=== PATIENT | male | born 1985 ===

== ENCOUNTER 2024-08-04 23:21 | Inpatient (IN) | payer MEDICAID, SELFPAY ==
[~2024-08-04 23:21] MED LIST: Iopamidol-370 76% 500 ML MDV (1 ML CHARGE) ONE
[2024-08-04] MEDS ORDERED: CEFAZOLIN 2 GM VIAL ONE (23:34)
[2024-08-04] MEDS ORDERED: Boostrix 0.5 ML (Tdap) VIAL (>/=7 yrs of age) ONE (23:35)
[2024-08-04] MEDS ORDERED: Sodium Chloride 0.9% 100 ML ONE (23:35)
[2024-08-04] MEDS ORDERED: Tranexamic Acid 1,000 MG/10 ML VIAL ONE (23:40)
[2024-08-04] MEDS ORDERED: Calcium Chloride 1 GM/10 ML Abboject SYRINGE ONE (23:42)
[2024-08-05] MEDS ORDERED: Fentanyl 250 MCG/5 ML VIAL ONE (00:06)
[2024-08-05] MEDS ORDERED: Midazolam HCl 2 mg/2 ml Vial ONE ×2 (00:07→01:05)
[2024-08-05 00:12] LABS: Alcohol Less than 10.0 mg/dL (Less than 10)
[2024-08-05 00:15] LABS: ALT (SGPT) 47 U/L (Less than 45); AST (SGOT) 69 U/L (11-34); Albumin 3.4 g/dL (3.1-4.5); Alkaline Phosphatase 89 U/L (40-110); Anion Gap 17 mmol/L (10-20); BUN (Urea Nitrogen) 14 mg/dL (8.9-20.6); Bilirubin, Total 0.6 mg/dL (0.3-1.2); Calc. Creatinine Clearance 0 mL/min (70-130); Calcium 7.6 mg/dL (7.8-10.44); Carbon Dioxide 15 mmol/L (22-29); Chloride 110 mmol/L (98-107); Estimated GFR 86; Globulin 2.3 g/dL (2.4-3.5); Glucose 216 mg/dL (70-105); Lipase 72 U/L (8-78); Potassium 2.9 mmol/L (3.5-5.1); Protein, Total 5.7 g/dL (6.0-8.3); Sodium 139 mmol/L (136-145)
[2024-08-05 00:16] LABS: INR-International Normal Ratio 1.4; PTT 24.8 sec (22.9-36.1); Prothrombin Time 16.9 sec (12.0-14.7)
[2024-08-05 00:38] LABS: Band 28 % (5-11); Hypochromia SLIGHT = 6-15 cells HPF (0-5); Lymphocytes 21 % (21-51); Neutrophil 51 % (42-75); Platelet Adequacy Comment Platelets Normal; Poikilocytosis SLIGHT = 6-15 cells HPF (0-5)
[2024-08-05 00:45] LABS: #Basophils 0.04 10x3/uL (0.0-0.2); %Basophils 0.2 % (0.0-1.0); %Eosinophils 0.3 % (0.0-10.0); %Lymphocytes 24.1 % (21.0-51.0); %Monocytes 3.2 % (0.0-10.0); %Neutrophils 71.2 % (42.0-75.0); Hematocrit 37.4 % (42.0-52.0); Hemoglobin 12.4 g/dL (14.0-18.0); Mean Corpuscular HGB CONC 33.2 g/dL (32.0-36.0); Mean Corpuscular Hemoglobin 30.5 pg (27.0-31.0); Mean Corpuscular Volume 91.9 fL (78.0-98.0); Mean Platelet Volume 10.6 fL (7.4-10.4); Platelet Count 309 10x3/uL (130-400); RBC Distribution Width 12.5 % (11.5-14.5); Red Blood Cell (RBC) Count 4.07 mill/uL (4.70-6.10)
[2024-08-05] MEDS ORDERED: Sodium Bicarb 50 mEq/50 ML VIAL ONE (01:11)
[2024-08-05] MEDS ORDERED: SUCCINYLCHOLINE/SOD CL,ISO/PF 200 MG/10 ML SYRINGE FS ONE (01:39)
[2024-08-05] MEDS ORDERED: Calcium Chloride 1 GM/10 ML Abboject SYRINGE ONE (01:39)
[2024-08-05] MEDS ORDERED: PHENYLEPHRINE-NS 100 MCG/ML 10 ML SYRINGE ONE (01:39)
[2024-08-05] MEDS ORDERED: Rocuronium Bromide 10 MG/ML (10ML VIAL) ONE (01:39)
[2024-08-05] MEDS ORDERED: Electrolyte Replacement Protocol FS SCH (01:45)
[2024-08-05] MEDS ORDERED: Ventilator Sedation Protocol FS SCH (01:45)
[2024-08-05] MEDS ORDERED: Dextrose 50% Abboject 50 ML SYRINGE SLOW IVP PRN (01:50)
[2024-08-05] MEDS ORDERED: Ondansetron PF 4 MG/2 ML Vial IVP PRN (01:50)
[2024-08-05] MEDS ORDERED: Morphine 4 MG/ML VIAL SLOW IVP PRN (01:50)
[2024-08-05] MEDS ORDERED: Acetaminophen 325 MG TAB PO PRN (01:50)
[2024-08-05] MEDS ORDERED: Dextrose 5% in Water 1,000 ML IV PRN (01:50)
[2024-08-05] MEDS ORDERED: Glucagon 1 MG/ML KIT IM PRN (01:50)
[2024-08-05] MEDS ORDERED: Morphine 2 MG/ML VIAL SLOW IVP PRN ×2 (01:50→03:00)
[2024-08-05] MEDS: Lactated Ringer's 1,000 ML IV SCH (02:30)
[2024-08-05 02:36] LABS: Actual Bicarbonate (HCO3a) 19.5 mEq/L (22-28); Base Excess (BEa) -5.9 mEq/L (-2.0 to +3.0); CO2 Tension 38.1 mmHg (35.0-45.0); O2 Tension (PaO2), arterial 185.3 mmHg (80.0-100.0); Potassium - ABG Lab 3.35 mmol/L (3.70-5.30); pH, Arterial 7.327 (7.35-7.45)
[2024-08-05 02:42] LABS: ALV-art Gradient 52.275 mmHg (0-20); Puncture Site Arterial Line
[2024-08-05] MEDS ORDERED: DISCONTINUE PREVIOUS NARCOTIC PAIN MEDICATIONS AND BENZODIAZEPINES FS SCH (03:00)
[2024-08-05] MEDS ORDERED: Fentanyl BOLUS 250 ML IVPB PRN (03:00)
[2024-08-05] MEDS ORDERED: Propofol BOLUS 1,000 MG/100 ML VIAL IV PRN (03:00)
[2024-08-05 03:04] LABS: #Basophils Less than 0.03 10x3/uL (0.0-0.2); #Eosinophils Less than 0.03 10x3/uL (0.0-0.7); %Basophils 0.2 % (0.0-1.0); %Eosinophils 0.2 % (0.0-10.0); %Lymphocytes 13.5 % (21.0-51.0); %Neutrophils 74.7 % (42.0-75.0); Hematocrit 34.3 % (42.0-52.0); Hemoglobin 11.7 g/dL (14.0-18.0); Mean Corpuscular HGB CONC 34.1 g/dL (32.0-36.0); Mean Corpuscular Hemoglobin 29.4 pg (27.0-31.0); Mean Corpuscular Volume 86.2 fL (78.0-98.0); Mean Platelet Volume 9.7 fL (7.4-10.4); Platelet Count 156 10x3/uL (130-400); RBC Distribution Width 13.7 % (11.5-14.5); Red Blood Cell (RBC) Count 3.98 mill/uL (4.70-6.10)
[2024-08-05 03:14] VITALS: BMI 19.8
[2024-08-05 03:21] LABS: Phosphorus 2.5 mg/dL (2.5-4.5)
[2024-08-05 03:25] LABS: ALT (SGPT) 135 U/L (Less than 45); AST (SGOT) 173 U/L (11-34); Alkaline Phosphatase 69 U/L (40-110); Anion Gap 15 mmol/L (10-20); BUN (Urea Nitrogen) 11 mg/dL (8.9-20.6); Bilirubin, Total 1.4 mg/dL (0.3-1.2); Calc. Creatinine Clearance 111 mL/min (70-130); Calcium 8.2 mg/dL (7.8-10.44); Carbon Dioxide 17 mmol/L (22-29); Chloride 114 mmol/L (98-107); Estimated GFR 112; Globulin 2.2 g/dL (2.4-3.5); Glucose 160 mg/dL (70-105); Lactic Acid 4.84 mmol/L (0.50-2.20); Magnesium 1.6 mg/dL (1.6-2.6); Potassium 3.2 mmol/L (3.5-5.1); Protein, Total 5.2 g/dL (6.0-8.3); Sodium 143 mmol/L (136-145)
[2024-08-05] MEDS ORDERED: NOREPINEPHRINE 8 MG/250 ML-D5W 250 ML IVPB SCH (04:00)
[2024-08-05] MEDS: Sodium Bicarb 50 MEQ/50 ML Abboject 8.4% SYRINGE IVP SCH (04:19)
[2024-08-05] MEDS: Fentanyl CADD 100 ML ONE (04:20)
[2024-08-05] MEDS: Sodium Bicarb 50 MEQ/50 ML Abboject 8.4% SYRINGE ONE (04:21)
[2024-08-05] MEDS: Albumin 25% 200 ML ONE (04:21)
[2024-08-05] MEDS: Albumin 25% 25 GM (100 mL) BOT IVPB SCH (04:24)
[2024-08-05] MEDS: Fentanyl CADD 100 ML IV SCH (04:28)
[2024-08-05] MEDS: Potassium Chloride 20 MEQ in Premix 1 BAG IVPB SCH ×2 (04:33→07:37)
[2024-08-05] MEDS: Magnesium Sulfate In Water 4 GM in Premix 1 BAG IVPB SCH (05:44)
[2024-08-05] MEDS: Famotidine/PF 20 mg/2ml Vial SLOW IVP SCH (08:10)
[2024-08-05] MEDS: Acetaminophen 325 MG TAB PO SCH (08:14)
[2024-08-05] MEDS: FLU (Fluarix Triv) TS24-25(6MOS UP)/PF 45 MCG/0.5 ML Syringe IM ONE (08:15)
[2024-08-05] MEDS: Enoxaparin 40 MG (0.4 mL) SYRINGE SC SCH (09:12)
[2024-08-05 11:05] LABS: Hematocrit 33.4 % (42.0-52.0); Hemoglobin 11.6 g/dL (14.0-18.0); Mean Corpuscular HGB CONC 34.7 g/dL (32.0-36.0); Mean Corpuscular Hemoglobin 29.8 pg (27.0-31.0); Mean Corpuscular Volume 85.9 fL (78.0-98.0); Mean Platelet Volume 10.2 fL (7.4-10.4); Platelet Count 117 10x3/uL (130-400); RBC Distribution Width 14.3 % (11.5-14.5); Red Blood Cell (RBC) Count 3.89 mill/uL (4.70-6.10)
[2024-08-05] MEDS: Lorazepam 2 MG/ML VIAL SLOW IVP PRN (11:23)
[2024-08-05] MEDS: Propofol 1,000 MG/100 ML VIAL IV PRN (11:28)
[2024-08-05 12:52] LABS: Hematocrit 34.4 % (42.0-52.0); Hemoglobin 12.3 g/dL (14.0-18.0); Mean Corpuscular HGB CONC 35.8 g/dL (32.0-36.0); Mean Corpuscular Hemoglobin 30.4 pg (27.0-31.0); Mean Corpuscular Volume 84.9 fL (78.0-98.0); Platelet Count 123 10x3/uL (130-400); RBC Distribution Width 14.1 % (11.5-14.5); Red Blood Cell (RBC) Count 4.05 mill/uL (4.70-6.10)
[2024-08-05 13:32] LABS: Band 19 % (5-11); Lymphocytes 6 % (21-51); Metamyelocyte 6 % (0-0); Monocytes 8 % (0-10); Neutrophil 62 % (42-75); Platelet Adequacy Comment Platelets Decreased; Polychromasia SLIGHT = 2-3 cells HPF (0-2); Schistocytes SLIGHT = 2-5 cells HPF (0-1); Smudge Cells 9.8 %; Tear Drops SLIGHT = 2-5 cells HPF (0-1); Toxic Granulation SLIGHT; Vacuoles SLIGHT
[2024-08-06 04:03] LABS: Hematocrit 32.2 % (42.0-52.0); Hemoglobin 11.1 g/dL (14.0-18.0); Mean Corpuscular HGB CONC 34.5 g/dL (32.0-36.0); Mean Corpuscular Hemoglobin 29.8 pg (27.0-31.0); Mean Corpuscular Volume 86.6 fL (78.0-98.0); Mean Platelet Volume 11.2 fL (7.4-10.4); Platelet Count 115 10x3/uL (130-400); RBC Distribution Width 14.4 % (11.5-14.5); Red Blood Cell (RBC) Count 3.72 mill/uL (4.70-6.10)
[2024-08-06 04:14] LABS: Anion Gap 12 mmol/L (10-20); BUN (Urea Nitrogen) 21 mg/dL (8.9-20.6); Calc. Creatinine Clearance 97 mL/min (70-130); Carbon Dioxide 24 mmol/L (22-29); Chloride 108 mmol/L (98-107); Estimated GFR 102; Glucose 130 mg/dL (70-105); Potassium 3.9 mmol/L (3.5-5.1); Sodium 140 mmol/L (136-145)
[2024-08-06 04:31] LABS: Band 62 % (5-11); Hypochromia SLIGHT = 6-15 cells HPF (0-5); Large Platelets 0.9 % (0-5); Lymphocytes 8 % (21-51); Metamyelocyte 3 % (0-0); Monocytes 9 % (0-10); Neutrophil 18 % (42-75); Nucleated RBC (Manual Ct) 1 % (0); Platelet Adequacy Comment Platelets Decreased; Polychromasia SLIGHT = 2-3 cells HPF (0-2)
[2024-08-06] MEDS ORDERED: PROPOFOL 20 ML ONE (12:34)
[2024-08-06] MEDS ORDERED: Midazolam HCl 2 mg/2 ml Vial ONE (12:34)
[2024-08-06] MEDS ORDERED: fentaNYL PF 100 MCG/2 ML SYRINGE ONE ×3 (12:34→15:51)
[2024-08-06] MEDS ORDERED: Rocuronium Bromide 10 MG/ML (10ML VIAL) ONE (12:35)
[2024-08-06] MEDS ORDERED: CEFAZOLIN 1 GM VIAL ONE (14:12)
[2024-08-06] MEDS ORDERED: SUGAMMADEX SODIUM 200 MG/2 ML VIAL ONE (14:21)
[2024-08-06] MEDS ORDERED: HYDROmorphone 2 MG/ML VIAL ONE (14:24)
[2024-08-06] MEDS: Acetaminophen 325 MG TAB ONE (22:34)
[2024-08-06] MEDS: Acetaminophen 325 MG TAB PO SCH ×2 (22:35→23:10)
[2024-08-06] MEDS: Piperacillin/Tazobactam 3.375 GM in Sodium Chloride 0.9% 100 ML IVPB SCH (22:41)
[2024-08-07] MEDS: Piperacillin/Tazobactam 3.375 GM in Sodium Chloride 0.9% 100 ML IVPB SCH (01:02)
[2024-08-07 04:19] LABS: Hematocrit 31.9 % (42.0-52.0); Hemoglobin 10.7 g/dL (14.0-18.0); Mean Corpuscular HGB CONC 33.5 g/dL (32.0-36.0); Mean Corpuscular Hemoglobin 29.9 pg (27.0-31.0); Mean Corpuscular Volume 89.1 fL (78.0-98.0); Mean Platelet Volume 11.2 fL (7.4-10.4); Platelet Count 126 10x3/uL (130-400); Red Blood Cell (RBC) Count 3.58 mill/uL (4.70-6.10)
[2024-08-07 04:28] LABS: Anion Gap 13 mmol/L (10-20); BUN (Urea Nitrogen) 18 mg/dL (8.9-20.6); Calc. Creatinine Clearance 94 mL/min (70-130); Calcium 7.8 mg/dL (7.8-10.44); Carbon Dioxide 25 mmol/L (22-29); Chloride 106 mmol/L (98-107); Estimated GFR 96; Glucose 120 mg/dL (70-105); Potassium 3.7 mmol/L (3.5-5.1); Sodium 140 mmol/L (136-145)
[2024-08-07 04:51] LABS: Band 34 % (5-11); Eosinophils 13 % (0-10); Hypochromia SLIGHT = 6-15 cells HPF (0-5); Large Platelets 4.9 % (0-5); Lymphocytes 6 % (21-51); Metamyelocyte 2 % (0-0); Monocytes 17 % (0-10); Neutrophil 25 % (42-75); Platelet Adequacy Comment Platelets Decreased; Reactive Lymphocytes 4 % (0-10)
[2024-08-07 07:35] LABS: Actual Bicarbonate (HCO3a) 25.4 mEq/L (22-28); Base Excess (BEa) 1.4 mEq/L (-2.0 to +3.0); CO2 Tension 37.5 mmHg (35.0-45.0); Calcium, Ionized (arterial) 1.01 mmol/L (1.12-1.30); Carboxyhemoglobin (COHb) 0.5 gm% (0.0-3.0); Hematocrit-ABG 34 % (42.0-52.0); Hemoglobin (Hb) 11.4 g/dL (14.0-18.0); O2 Tension (PaO2), arterial 107.3 mmHg (80.0-100.0); Potassium - ABG Lab 3.67 mmol/L (3.70-5.30); pH, Arterial 7.448 (7.35-7.45)
[2024-08-07 07:37] LABS: ALV-art Gradient 131.025 mmHg (0-20); Puncture Site Arterial Line
[2024-08-07] MEDS ORDERED: CEFAZOLIN 2 GM in Sodium Chloride 0.9% 100 ML IVPB SCH (08:15)
[2024-08-07] MEDS ORDERED: Sterile Water 10 ML ONE (14:51)
[2024-08-07] MEDS ORDERED: CEFAZOLIN 1 GM VIAL ONE (14:51)
[2024-08-07] MEDS ORDERED: Dexamethasone 20 MG/5 ML VIAL ONE (15:01)
[2024-08-07] MEDS ORDERED: fentaNYL PF 100 MCG/2 ML SYRINGE ONE (15:12)
[2024-08-07] MEDS ORDERED: PHENYLEPHRINE-NS 100 MCG/ML 10 ML SYRINGE ONE (16:02)
[2024-08-07] MEDS ORDERED: Vecuronium 10 MG VIAL ONE ×2 (16:14→18:06)
[2024-08-07] MEDS ORDERED: Sodium Chloride 0.9% 250 ML 250 ML ONE (16:31)
[2024-08-07] MEDS ORDERED: Phenylephrine 10 MG/ML VIAL ONE (16:32)
[2024-08-07] MEDS ORDERED: Albumin 5% 500 ML ONE (16:56)
[2024-08-07] MEDS ORDERED: Esmolol 100 MG/10 ML VIAL ONE (17:13)
[2024-08-07] MEDS ORDERED: Vancomycin 1 GM VIAL ONE (17:17)
[2024-08-07] MEDS: CEFAZOLIN 2 GM in Sodium Chloride 0.9% 100 ML IVPB SCH (21:09)
[2024-08-08 04:21] LABS: Hematocrit 25.4 % (42.0-52.0); Hemoglobin 8.4 g/dL (14.0-18.0); Mean Corpuscular HGB CONC 33.1 g/dL (32.0-36.0); Mean Corpuscular Hemoglobin 29.7 pg (27.0-31.0); Mean Corpuscular Volume 89.8 fL (78.0-98.0); Platelet Count 128 10x3/uL (130-400); RBC Distribution Width 13.6 % (11.5-14.5); Red Blood Cell (RBC) Count 2.83 mill/uL (4.70-6.10)
[2024-08-08 04:39] LABS: Anion Gap 12 mmol/L (10-20); BUN (Urea Nitrogen) 16 mg/dL (8.9-20.6); Calc. Creatinine Clearance 116 mL/min (70-130); Calcium 7.6 mg/dL (7.8-10.44); Carbon Dioxide 26 mmol/L (22-29); Chloride 107 mmol/L (98-107); Estimated GFR 113; Glucose 162 mg/dL (70-105); Potassium 3.7 mmol/L (3.5-5.1); Sodium 141 mmol/L (136-145)
[2024-08-08 05:17] LABS: Band 30 % (5-11); Hypochromia SLIGHT = 6-15 cells HPF (0-5); Lymphocytes 4 % (21-51); Monocytes 4 % (0-10); Neutrophil 62 % (42-75); Platelet Adequacy Comment Platelets Decreased; Polychromasia SLIGHT = 2-3 cells HPF (0-2)
[2024-08-08] MEDS ORDERED: DC Sedation Protocol FS SCH (08:03)
[2024-08-08] MEDS: Morphine 4 MG/ML VIAL SLOW IVP PRN (16:48)
[2024-08-08] MEDS ORDERED: Morphine 4 MG/ML VIAL SLOW IVP PRN (20:39)
[2024-08-08] MEDS: Acetaminophen 500 MG TAB PO SCH (21:30)
[2024-08-08] MEDS: Lactated Ringer's 1,000 ML IV SCH (21:30)
[2024-08-08] MEDS: Ketorolac Tromethamine 30 MG (1 mL) VIAL IVP SCH (23:22)
[2024-08-09 04:50] LABS: #Basophils Less than 0.03 10x3/uL (0.0-0.2); #Eosinophils Less than 0.03 10x3/uL (0.0-0.7); %Basophils 0.1 % (0.0-1.0); %Eosinophils 0.1 % (0.0-10.0); %Lymphocytes 6.5 % (21.0-51.0); %Monocytes 8.9 % (0.0-10.0); Hematocrit 23.6 % (42.0-52.0); Hemoglobin 7.7 g/dL (14.0-18.0); Mean Corpuscular HGB CONC 32.6 g/dL (32.0-36.0); Mean Corpuscular Hemoglobin 29.3 pg (27.0-31.0); Mean Corpuscular Volume 89.7 fL (78.0-98.0); Mean Platelet Volume 11.1 fL (7.4-10.4); Platelet Count 171 10x3/uL (130-400); RBC Distribution Width 13.9 % (11.5-14.5); Red Blood Cell (RBC) Count 2.63 mill/uL (4.70-6.10)
[2024-08-09 05:25] LABS: Anion Gap 12 mmol/L (10-20); BUN (Urea Nitrogen) 20 mg/dL (8.9-20.6); Calc. Creatinine Clearance 159 mL/min (70-130); Calcium 7.8 mg/dL (7.8-10.44); Carbon Dioxide 26 mmol/L (22-29); Chloride 109 mmol/L (98-107); Estimated GFR 121; Glucose 136 mg/dL (70-105); Potassium 3.8 mmol/L (3.5-5.1); Sodium 143 mmol/L (136-145)
[2024-08-09] MEDS: Piperacillin/Tazobactam 3.375 GM VIAL ONE (23:55)
[2024-08-10] MEDS: Azithromycin 500 MG in Sodium Chloride 0.9% 250 ML 250 ML IVPB SCH (12:12)
[2024-08-10] MEDS: Saccharomyces boulardii 250 MG CAP PO SCH (12:13)
[2024-08-10] MEDS ORDERED: Lactated Ringer's 1,000 ML IV SCH (14:03)
[2024-08-10 14:14] LABS: Hematocrit 27.3 % (42.0-52.0); Mean Corpuscular Hemoglobin 30.2 pg (27.0-31.0); Mean Corpuscular Volume 91.6 fL (78.0-98.0); Mean Platelet Volume 10.5 fL (7.4-10.4); Platelet Count 272 10x3/uL (130-400); RBC Distribution Width 13.8 % (11.5-14.5); Red Blood Cell (RBC) Count 2.98 mill/uL (4.70-6.10)
[2024-08-10 14:31] LABS: Anion Gap 14 mmol/L (10-20); BUN (Urea Nitrogen) 17 mg/dL (8.9-20.6); Calc. Creatinine Clearance 156 mL/min (70-130); Calcium 7.9 mg/dL (7.8-10.44); Carbon Dioxide 21 mmol/L (22-29); Chloride 111 mmol/L (98-107); Estimated GFR 121; Glucose 137 mg/dL (70-105); Potassium 3.6 mmol/L (3.5-5.1); Sodium 142 mmol/L (136-145)
[2024-08-10 14:40] LABS: Band 6 % (5-11); Hypochromia SLIGHT = 6-15 cells HPF (0-5); Large Platelets 2.9 % (0-5); Lymphocytes 6 % (21-51); Metamyelocyte 1 % (0-0); Monocytes 8 % (0-10); Myelocyte 2 % (0-0); Neutrophil 76 % (42-75); Platelet Adequacy Comment Platelets Normal; Polychromasia MODERATE = 3-4 cells HPF (0-2); RBC Morphology Within Normal Limits; Reactive Lymphocytes 2 % (0-10)
[2024-08-10] MEDS: traMADol HCl 50 MG TAB PO SCH (14:56)
[2024-08-10] MEDS ORDERED: Iopamidol-370 76% 500 ML MDV (1 ML CHARGE) ONE (15:13)
[2024-08-10] MEDS: Vancomycin (BATCH) 2 GM in Premix 1 BAG IVPB SCH (18:18)
[2024-08-10] MEDS: Vancomycin 1 GM in Premix 1 BAG IVPB SCH (23:17)
[2024-08-11 07:04] LABS: Anion Gap 12 mmol/L (10-20); BUN (Urea Nitrogen) 11 mg/dL (8.9-20.6); Calc. Creatinine Clearance 169 mL/min (70-130); Calcium 7.8 mg/dL (7.8-10.44); Carbon Dioxide 20 mmol/L (22-29); Chloride 108 mmol/L (98-107); Estimated GFR 124; Glucose 130 mg/dL (70-105); Potassium 3.3 mmol/L (3.5-5.1); Sodium 137 mmol/L (136-145)
[2024-08-11 07:36] LABS: Hemoglobin 8.3 g/dL (14.0-18.0); Mean Corpuscular HGB CONC 33.2 g/dL (32.0-36.0); Mean Corpuscular Hemoglobin 29.6 pg (27.0-31.0); Mean Corpuscular Volume 89.3 fL (78.0-98.0); Mean Platelet Volume 10.1 fL (7.4-10.4); Platelet Count 327 10x3/uL (130-400); RBC Distribution Width 13.8 % (11.5-14.5)
[2024-08-11 08:07] LABS: Band 3 % (5-11); Eosinophils 1 % (0-10); Lymphocytes 9 % (21-51); Metamyelocyte 1 % (0-0); Monocytes 6 % (0-10); Neutrophil 79 % (42-75); Nucleated RBC (Manual Ct) 3 % (0); Ovalocytes SLIGHT = 2-5 cells HPF (0-1); Platelet Adequacy Comment Platelets Normal; Polychromasia SLIGHT = 2-3 cells HPF (0-2)
[2024-08-11] MEDS: Saccharomyces boulardii 250 MG CAP PO SCH (09:19)
[2024-08-11] MEDS: VANCOMYCIN 1.25 GM/250 ML BAG 1.25 GM in Premix 1 BAG IVPB SCH (17:02)
[2024-08-12] MEDS: Potassium Chloride 20 MEQ TAB PO SCH (09:18)
[2024-08-12 14:07] VITALS: BMI 21.4
[2024-08-13 08:23] LABS: Anion Gap 14 mmol/L (10-20); BUN (Urea Nitrogen) 13 mg/dL (8.9-20.6); Calc. Creatinine Clearance 164 mL/min (70-130); Calcium 7.9 mg/dL (7.8-10.44); Carbon Dioxide 21 mmol/L (22-29); Chloride 104 mmol/L (98-107); Estimated GFR 126; Glucose 95 mg/dL (70-105); Sodium 135 mmol/L (136-145)
[2024-08-13 11:36] LABS: Vancomycin, Random 17.3 ug/mL (See Comment)
[2024-08-13 12:47] LABS: Hematocrit 28.9 % (42.0-52.0); Hemoglobin 9.7 g/dL (14.0-18.0); Mean Corpuscular HGB CONC 33.6 g/dL (32.0-36.0); Mean Corpuscular Hemoglobin 29.8 pg (27.0-31.0); Mean Corpuscular Volume 88.9 fL (78.0-98.0); Mean Platelet Volume 9.6 fL (7.4-10.4); Platelet Count 582 10x3/uL (130-400); RBC Distribution Width 14.1 % (11.5-14.5); Red Blood Cell (RBC) Count 3.25 mill/uL (4.70-6.10)
[2024-08-13 13:22] LABS: Band 3 % (5-11); Eosinophils 1 % (0-10); Lymphocytes 6 % (21-51); Metamyelocyte 2 % (0-0); Monocytes 5 % (0-10); Neutrophil 84 % (42-75); Platelet Adequacy Comment Platelets Increased; Polychromasia SLIGHT = 2-3 cells HPF (0-2); RBC Morphology Within Normal Limits; Smudge Cells 0.9 %
[2024-08-14 05:42] LABS: #Basophils 0.03 10x3/uL (0.0-0.2); %Basophils 0.2 % (0.0-1.0); %Eosinophils 0.3 % (0.0-10.0); %Lymphocytes 8.8 % (21.0-51.0); %Monocytes 7.1 % (0.0-10.0); %Neutrophils 78.7 % (42.0-75.0); Hematocrit 26.5 % (42.0-52.0); Hemoglobin 9.1 g/dL (14.0-18.0); Mean Corpuscular HGB CONC 34.3 g/dL (32.0-36.0); Mean Corpuscular Hemoglobin 29.6 pg (27.0-31.0); Mean Corpuscular Volume 86.3 fL (78.0-98.0); Mean Platelet Volume 9.6 fL (7.4-10.4); Platelet Count 626 10x3/uL (130-400); RBC Distribution Width 14.3 % (11.5-14.5); Red Blood Cell (RBC) Count 3.07 mill/uL (4.70-6.10)
[2024-08-15] MEDS: traMADol HCl 50 MG TAB PO PRN (14:22)
[2024-08-15] MEDS: Amoxicillin/Potassium Clav 875 MG TAB PO SCH (21:03)
[2024-08-16 15:31] VITALS: BP 128/70; TEMP 98.2
== END 2024-08-16 19:15 | disposition home or self-care (01) | DRG 957 ==
LOC: ERS 23:21 → SDC/OP 08-05 00:23 → CCU 08-05 02:05 → SURG A 08-09 19:14
PROVIDERS: ADMIT Student in an Organized Health Care Education/Training Program; ATTEND Student in an Organized Health Care Education/Training Program
PROC: 0PSG04Z Reposition Left Humeral Shaft with Internal Fixation Device, Open Approach (ICD-10-PCS; principal; 2024-08-05)
PROC: 0QSG04Z Reposition Right Tibia with Internal Fixation Device, Open Approach (ICD-10-PCS; 2024-08-05)
PROC: 0DB80ZZ Excision of Small Intestine, Open Approach (ICD-10-PCS; 2024-08-05)
PROC: 0DQV0ZZ Repair Mesentery, Open Approach (ICD-10-PCS; 2024-08-05)
PROC: 02HV33Z Insertion of Infusion Device into Superior Vena Cava, Percutaneous Approach (ICD-10-PCS; 2024-08-05)
PROC: B548ZZA Ultrasonography of Superior Vena Cava, Guidance (ICD-10-PCS; 2024-08-05)
PROC: 0DTA0ZZ Resection of Jejunum, Open Approach (ICD-10-PCS; 2024-08-05)
DX: S42.422A Displaced comminuted supracondylar fracture without intercondylar fracture of left humerus, initial encounter for closed fracture (principal); J18.9 Pneumonia, unspecified organism; S36.81XA Injury of peritoneum, initial encounter; S31.614A Laceration without foreign body of abdominal wall, left lower quadrant with penetration into peritoneal cavity, initial encounter; J96.01 Acute respiratory failure with hypoxia; R57.8 Other shock; D62 Acute posthemorrhagic anemia; E87.20 Acidosis, unspecified; J98.11 Atelectasis; S36.113A Laceration of liver, unspecified degree, initial encounter; S82.841A Displaced bimalleolar fracture of right lower leg, initial encounter for closed fracture; S02.2XXA Fracture of nasal bones, initial encounter for closed fracture; E87.6 Hypokalemia; R79.89 Other specified abnormal findings of blood chemistry; M21.961 Unspecified acquired deformity of right lower leg; M21.922 Unspecified acquired deformity of left upper arm; S36.893A Laceration of other intra-abdominal organs, initial encounter; I10 Essential (primary) hypertension; V89.2XXA Person injured in unspecified motor-vehicle accident, traffic, initial encounter; Y92.410 Unspecified street and highway as the place of occurrence of the external cause
CPT/HCPCS: 36415; 36416; 36430; 70450; 71045; 71260; 71275; 72125; 72170; 74018; 74177; 80048; 80053; 80202; 80307; 82805; 83605; 83690; 83735; 84100; 84484; 85025; 85610; 85730; 86850; 86900; 86901; 87040; 87081; 88307; 90471; 90715; 93005; 94003; 94760; 96374; 96375; A4314; A4649; C1713; C1874; G0390; J0456; J0690; J1100; J1171; J1650; J1885; J2060; J2250; J2270; J2371; J2543; J2704; J3010; J3370; J3475; J3480; J3490; J7050; J7120; P9016; P9035; P9045; P9047; P9048; P9059; Q9967